=== PATIENT | male | born 1945 | race Caucasian/White ===

== ENCOUNTER 2022-08-25 18:23 | Inpatient (IN) | payer MEDICARE ==
[~2022-08-25 18:23] MED LIST: Iopamidol 370 76% 100 ML VIAL ONE
[2022-08-25] MEDS ORDERED: Albuterol Sulfate 2.5 mg/3 ml Neb ONE (18:43)
[2022-08-25] MEDS ORDERED: Ipratropium Bromide 2.5 ml Neb ONE (19:01)
[2022-08-25 19:52] LABS: Anion Gap 21 mmol/L (10-20); BUN (Urea Nitrogen) 17 mg/dL (8.4-25.7); Calc. Creatinine Clearance 0 mL/min (70-130); Carbon Dioxide 17 mmol/L (23-31); Chloride 104 mmol/L (98-107); Potassium 4.2 mmol/L (3.5-5.1); Sodium 138 mmol/L (136-145)
[2022-08-25 19:53] LABS: ALT (SGPT) Less than 6 U/L (8-55); AST (SGOT) 11 U/L (5-34); Albumin 3.9 g/dL (3.4-4.8); Alkaline Phosphatase 88 U/L (40-110); Bilirubin, Total 1.2 mg/dL (0.2-1.2); Calcium 9.2 mg/dL (7.8-10.44); Estimated GFR 49; Globulin 3.3 g/dL (2.4-3.5); Glucose 254 mg/dL (83-110); Protein, Total 7.2 g/dL (5.8-8.1)
[2022-08-25 20:07] LABS: Hemoglobin 13.6 g/dL (13.5-17.5); Mean Corpuscular HGB CONC 32.4 g/dL (32.0-36.0); Mean Corpuscular Hemoglobin 26.8 pg (27.0-33.0); Mean Corpuscular Volume 82.7 fl (81.2-95.1); Mean Platelet Volume 9.9 fl (7.4-10.4); Platelet Count 253 10x3/uL (150-450); RBC Distribution Width 14.1 % (11.5-14.5); Red Blood Cell (RBC) Count 5.08 10x6/uL (4.32-5.72); White Blood Cell (WBC) Count 7.9 10x3/uL (3.5-10.5)
[2022-08-25 20:08] LABS: MDiff Complete? YES
[2022-08-25 20:13] LABS: Band 24 % (5-11); Eosinophils 2 % (0-10); Lymphocytes 6 % (21-51); Monocytes 3 % (0-10); Neutrophil 65 % (42-75)
[2022-08-25 20:17] LABS: ALV-art Gradient 599.475 mmHg (0-20); Actual Bicarbonate (HCO3a) 17.3 mEq/L (22-28); Base Excess (BEa) -7.2 mEq/L (-2.0 to +3.0); CO2 Tension 32.5 mmHg (35.0-45.0); Carboxyhemoglobin (COHb) 0.2 gm% (0.0-3.0); Critical Notified By: CP.PH; Hemoglobin (Hb) 14.8 g/dL (14.0-18.0); O2 Tension (PaO2), arterial 72.9 mmHg (> 70.0); Potassium - ABG Lab 4.2 mmol/L (3.70-5.30); Puncture Site RRA; RapidComm Collect By CP.PH; pH, Arterial 7.35 (7.35-7.45)
[2022-08-25 20:20] LABS: Hypochromia SLIGHT = 6-15 cells (100X) (0-5/hpf); Microcytosis SLIGHT = 6-15 cells (100X) (0-5/hpf)
[2022-08-25] MEDS ORDERED: Dextrose 5% in Water 1,000 ML IV PRN (20:34)
[2022-08-25] MEDS ORDERED: Ondansetron PF 4 MG/2 ML Vial IVP PRN (20:34)
[2022-08-25] MEDS ORDERED: HumaLOG 300 UNITS/3 ML VIAL SC PRN (20:34)
[2022-08-25] MEDS ORDERED: Bisacodyl 5 MG TAB PO PRN (20:34)
[2022-08-25] MEDS ORDERED: Acetaminophen 325 MG TAB PO PRN (20:34)
[2022-08-25] MEDS ORDERED: Guaifenesin DM 100-10/5 ML UDCUP PO PRN (20:34)
[2022-08-25] MEDS ORDERED: Dextrose 50% Abboject 50 ML SYRINGE SLOW IVP PRN (20:34)
[2022-08-25] MEDS ORDERED: Morphine 2 MG/ML VIAL SLOW IVP PRN (20:44)
[2022-08-25] MEDS ORDERED: Enoxaparin Sodium 40 MG/0.4 ML SYRINGE SC SCH (21:00)
[2022-08-25] MEDS ORDERED: Cefepime 2 GM VIAL ONE (21:18)
[2022-08-25] MEDS: Cefepime 1 GM in Sodium Chloride 0.9% 100 ML IVPB SCH (22:00)
[2022-08-25 22:17] VITALS: BMI 29.7
[2022-08-25] MEDS ORDERED: Famotidine/PF 20 mg/2ml Vial SLOW IVP SCH (22:30)
[2022-08-25] MEDS: VANCOMYCIN 1.25 GM/250 ML BAG 1.25 GM in Premix Bag 1 BAG IVPB SCH (22:59)
[2022-08-25] MEDS: Lactated Ringer's 1,000 ML IV SCH (22:59)
[2022-08-25] MEDS: methylPREDNISolone Sod Succ 40 MG VIAL IVP SCH (23:00)
[2022-08-25 23:34] LABS: Lactic Acid 2.3 mmol/L (0.5-2.2)
[2022-08-26 00:35] LABS: Bilirubin Neg (Negative); Blood, Urine 10 (Negative); Clarity Clear (Clear); Glucose, Urine (Dipstick) Normal (Negative); Ketone, Urine Negative (Negative); Leukocyte Negative (Negative); Nitrite Negative (Negative); Protein, Urine (Dipstick) 100 mg/dl (Neg-Trace); Urobilinogen Normal mg/dL (Less than 2)
[2022-08-26 00:50] LABS: Bacteria/HPF None Seen HPF (None Seen); RBC/HPF 0-3 HPF (0-3); Squamous Epithelial None Seen HPF (0-3); WBC/HPF 0-3 HPF (0-3)
[2022-08-26] MEDS: methylPREDNISolone Sod Succ 40 MG VIAL IVP SCH ×4 (05:20→23:01)
[2022-08-26 05:49] LABS: ALT (SGPT) Less than 6 U/L (8-55); AST (SGOT) 8 U/L (5-34); Albumin 3.4 g/dL (3.4-4.8); Alkaline Phosphatase 57 U/L (40-110); Anion Gap 16 mmol/L (10-20); BUN (Urea Nitrogen) 22 mg/dL (8.4-25.7); Bilirubin, Total 0.9 mg/dL (0.2-1.2); Calc. Creatinine Clearance 57 mL/min (70-130); Calcium 9.2 mg/dL (7.8-10.44); Carbon Dioxide 18 mmol/L (23-31); Chloride 107 mmol/L (98-107); Estimated GFR 55; Globulin 3.3 g/dL (2.4-3.5); Glucose 195 mg/dL (83-110); Phosphorus 2.4 mg/dL (2.3-4.7); Protein, Total 6.7 g/dL (5.8-8.1); Sodium 137 mmol/L (136-145)
[2022-08-26 06:02] LABS: Hemoglobin 12.1 g/dL (13.5-17.5); Mean Corpuscular HGB CONC 32.4 g/dL (32.0-36.0); Mean Corpuscular Hemoglobin 26.5 pg (27.0-33.0); Mean Corpuscular Volume 81.8 fl (81.2-95.1); Mean Platelet Volume 9.6 fl (7.4-10.4); Platelet Count 171 10x3/uL (150-450); RBC Distribution Width 14.2 % (11.5-14.5); Red Blood Cell (RBC) Count 4.56 10x6/uL (4.32-5.72); White Blood Cell (WBC) Count 8.4 10x3/uL (3.5-10.5)
[2022-08-26 06:07] LABS: MDiff Complete? YES
[2022-08-26 06:58] LABS: Band 8 % (5-11); Lymphocytes 11 % (21-51); Monocytes 9 % (0-10); Neutrophil 71 % (42-75); Reactive Lymphocytes 1 % (0-10)
[2022-08-26 07:01] LABS: Anisocytosis SLIGHT = 6-15 cells (100X) (0-5/hpf); Microcytosis SLIGHT = 6-15 cells (100X) (0-5/hpf); Platelet Morphology Comment Appears Adequate
[2022-08-26] MEDS: Sertraline 25 MG TAB PO SCH (08:17)
[2022-08-26] MEDS: Cefepime 1 GM in Sodium Chloride 0.9% 100 ML IVPB SCH (08:17)
[2022-08-26] MEDS: Azithromycin 500 MG in Sodium Chloride 0.9% 250 ML 250 ML IVPB SCH (09:06)
[2022-08-26] MEDS ORDERED: Piperacillin/Tazobactam 3.375 GM in Sodium Chloride 0.9% 100 ML IVPB SCH (10:00)
[2022-08-26] MEDS: HumaLOG 300 UNITS/3 ML VIAL SC PRN ×2 (11:39→16:42)
[2022-08-26] MEDS: Lactated Ringer's 1,000 ML IV SCH (12:26)
[2022-08-26] MEDS: Piperacillin/Tazobactam 3.375 GM in Sodium Chloride 0.9% 100 ML IVPB SCH ×2 (13:41→21:00)
[2022-08-26 14:49] LABS: Legionella Urinary Ag Negative (Negative); Strep pneumo Urine Ag NEGATIVE (NEGATIVE)
[2022-08-26] MEDS: Carvedilol 12.5 MG TAB PO SCH (16:43)
[2022-08-26] MEDS: Enoxaparin Sodium 40 MG/0.4 ML SYRINGE SC SCH (20:29)
[2022-08-26] MEDS ORDERED: Famotidine/PF 20 mg/2ml Vial SLOW IVP SCH (21:00)
[2022-08-26] MEDS: hydrALAZINE 20 MG/ML VIAL SLOW IVP PRN (22:09)
[2022-08-26] MEDS: VANCOMYCIN 1.25 GM/250 ML BAG 1.25 GM in Premix Bag 1 BAG IVPB SCH (22:58)
[2022-08-27 03:47] LABS: Hemoglobin 10.7 g/dL (13.5-17.5); Mean Corpuscular HGB CONC 33.5 g/dL (32.0-36.0); Mean Corpuscular Hemoglobin 27.2 pg (27.0-33.0); Mean Platelet Volume 10.1 fl (7.4-10.4); Platelet Count 165 10x3/uL (150-450); Red Blood Cell (RBC) Count 3.94 10x6/uL (4.32-5.72); White Blood Cell (WBC) Count 6.4 10x3/uL (3.5-10.5)
[2022-08-27 03:48] LABS: MDiff Complete? YES
[2022-08-27 03:56] LABS: ALT (SGPT) Less than 6 U/L (8-55); AST (SGOT) 12 U/L (5-34); Albumin 3.2 g/dL (3.4-4.8); Alkaline Phosphatase 51 U/L (40-110); Anion Gap 15 mmol/L (10-20); BUN (Urea Nitrogen) 27 mg/dL (8.4-25.7); Bilirubin, Total 0.7 mg/dL (0.2-1.2); Calc. Creatinine Clearance 77 mL/min (70-130); Calcium 9.1 mg/dL (7.8-10.44); Carbon Dioxide 19 mmol/L (23-31); Chloride 110 mmol/L (98-107); Estimated GFR 79; Globulin 3.1 g/dL (2.4-3.5); Glucose 189 mg/dL (83-110); Potassium 3.7 mmol/L (3.5-5.1); Protein, Total 6.3 g/dL (5.8-8.1); Sodium 140 mmol/L (136-145)
[2022-08-27 04:44] LABS: Band 6 % (5-11); Lymphocytes 9 % (21-51); Monocytes 8 % (0-10); Neutrophil 77 % (42-75)
[2022-08-27 04:47] LABS: Microcytosis SLIGHT = 6-15 cells (100X) (0-5/hpf); Platelet Morphology Comment Appears Adequate
[2022-08-27] MEDS: methylPREDNISolone Sod Succ 40 MG VIAL IVP SCH ×3 (05:04→21:33)
[2022-08-27] MEDS: Piperacillin/Tazobactam 3.375 GM in Sodium Chloride 0.9% 100 ML IVPB SCH ×2 (05:04→13:11)
[2022-08-27] MEDS: Lactated Ringer's 1,000 ML IV SCH (05:05)
[2022-08-27] MEDS: Aspirin 325 mg Enteric Coated Tablet PO SCH (07:59)
[2022-08-27] MEDS: Carvedilol 12.5 MG TAB PO SCH ×2 (08:00→17:05)
[2022-08-27] MEDS: Sertraline 25 MG TAB PO SCH (08:00)
[2022-08-27] MEDS: HumaLOG 300 UNITS/3 ML VIAL SC PRN ×2 (08:26→17:53)
[2022-08-27] MEDS ORDERED: Famotidine/PF 20 mg/2ml Vial SLOW IVP SCH (09:00)
[2022-08-27] MEDS: Azithromycin 500 MG in Sodium Chloride 0.9% 250 ML 250 ML IVPB SCH (09:26)
[2022-08-27] MEDS: cefTRIAXone\\ROCEPHIN 2 GM in Sodium Chloride 0.9% 100 ML IVPB SCH (13:55)
[2022-08-27] MEDS: hydrALAZINE 20 MG/ML VIAL SLOW IVP PRN (19:44)
[2022-08-27] MEDS: Enoxaparin Sodium 40 MG/0.4 ML SYRINGE SC SCH (21:33)
[2022-08-28] MEDS: hydrALAZINE 20 MG/ML VIAL SLOW IVP PRN ×2 (01:32→06:07)
[2022-08-28 04:21] LABS: #Monocytes 0.2 10x3/uL (0.0-1.1); #Neutrophils 6.1 10x3/uL (1.5-8.4); %Basophils 0.1 % (0.0-2.0); %Lymphocytes 6.8 % (18.0-47.0); %Neutrophils 88.5 % (40.0-75.0); Hemoglobin 10.5 g/dL (13.5-17.5); Mean Corpuscular HGB CONC 33.1 g/dL (32.0-36.0); Mean Corpuscular Hemoglobin 26.6 pg (27.0-33.0); Mean Corpuscular Volume 80.5 fl (81.2-95.1); Mean Platelet Volume 10.1 fl (7.4-10.4); Platelet Count 196 10x3/uL (150-450); RBC Distribution Width 14.1 % (11.5-14.5); Red Blood Cell (RBC) Count 3.94 10x6/uL (4.32-5.72); White Blood Cell (WBC) Count 6.9 10x3/uL (3.5-10.5)
[2022-08-28 04:35] LABS: ALT (SGPT) 20 U/L (8-55); AST (SGOT) 23 U/L (5-34); Albumin 3.1 g/dL (3.4-4.8); Alkaline Phosphatase 58 U/L (40-110); Anion Gap 13 mmol/L (10-20); BUN (Urea Nitrogen) 31 mg/dL (8.4-25.7); Bilirubin, Total 0.4 mg/dL (0.2-1.2); Calc. Creatinine Clearance 82 mL/min (70-130); Calcium 8.8 mg/dL (7.8-10.44); Carbon Dioxide 23 mmol/L (23-31); Chloride 109 mmol/L (98-107); Estimated GFR 82; Glucose 230 mg/dL (83-110); Potassium 3.5 mmol/L (3.5-5.1); Protein, Total 6.1 g/dL (5.8-8.1); Sodium 141 mmol/L (136-145)
[2022-08-28] MEDS: methylPREDNISolone Sod Succ 40 MG VIAL IVP SCH ×2 (08:42→21:21)
[2022-08-28] MEDS: Sertraline 25 MG TAB PO SCH (08:42)
[2022-08-28] MEDS: Aspirin 325 mg Enteric Coated Tablet PO SCH (08:43)
[2022-08-28] MEDS: HumaLOG 300 UNITS/3 ML VIAL SC PRN ×2 (08:47→16:40)
[2022-08-28] MEDS: Azithromycin 500 MG in Sodium Chloride 0.9% 250 ML 250 ML IVPB SCH (09:08)
[2022-08-28] MEDS: Carvedilol 12.5 MG TAB PO SCH ×2 (10:01→16:37)
[2022-08-28] MEDS: cefTRIAXone\\ROCEPHIN 2 GM in Sodium Chloride 0.9% 100 ML IVPB SCH (13:02)
[2022-08-28] MEDS: hydrALAZINE 25 MG TAB PO SCH ×2 (16:32→21:21)
[2022-08-28] MEDS ORDERED: Carvedilol 3.125 MG TAB PO SCH (17:00)
[2022-08-28] MEDS: NIFEdipine XL 60 MG TAB PO SCH (21:20)
[2022-08-28] MEDS: Enoxaparin Sodium 40 MG/0.4 ML SYRINGE SC SCH (21:20)
[2022-08-29] MEDS: hydrALAZINE 20 MG/ML VIAL SLOW IVP PRN ×2 (00:12→04:31)
[2022-08-29 04:29] LABS: #Monocytes 0.2 10x3/uL (0.0-1.1); %Basophils 0.2 % (0.0-2.0); %Lymphocytes 5.2 % (18.0-47.0); %Monocytes 2.6 % (0.0-10.0); %Neutrophils 90.2 % (40.0-75.0); Mean Corpuscular HGB CONC 32.9 g/dL (32.0-36.0); Mean Corpuscular Hemoglobin 26.4 pg (27.0-33.0); Mean Corpuscular Volume 80.1 fl (81.2-95.1); Mean Platelet Volume 10.1 fl (7.4-10.4); Platelet Count 209 10x3/uL (150-450); RBC Distribution Width 14.2 % (11.5-14.5); Red Blood Cell (RBC) Count 4.17 10x6/uL (4.32-5.72); White Blood Cell (WBC) Count 8.9 10x3/uL (3.5-10.5)
[2022-08-29 04:34] LABS: ALT (SGPT) 29 U/L (8-55); AST (SGOT) 20 U/L (5-34); Albumin 3.1 g/dL (3.4-4.8); Alkaline Phosphatase 60 U/L (40-110); Anion Gap 12 mmol/L (10-20); BUN (Urea Nitrogen) 33 mg/dL (8.4-25.7); Bilirubin, Total 0.4 mg/dL (0.2-1.2); Calc. Creatinine Clearance 86 mL/min (70-130); Calcium 8.7 mg/dL (7.8-10.44); Carbon Dioxide 23 mmol/L (23-31); Chloride 107 mmol/L (98-107); Estimated GFR 83; Glucose 247 mg/dL (83-110); Potassium 3.5 mmol/L (3.5-5.1); Protein, Total 6.1 g/dL (5.8-8.1); Sodium 138 mmol/L (136-145)
[2022-08-29] MEDS: HumaLOG 300 UNITS/3 ML VIAL SC PRN ×2 (06:33→17:20)
[2022-08-29] MEDS: Aspirin 325 mg Enteric Coated Tablet PO SCH (08:59)
[2022-08-29] MEDS: Sertraline 25 MG TAB PO SCH (08:59)
[2022-08-29] MEDS: Azithromycin 500 MG in Sodium Chloride 0.9% 250 ML 250 ML IVPB SCH (08:59)
[2022-08-29] MEDS: hydrALAZINE 25 MG TAB PO SCH ×3 (08:59→21:32)
[2022-08-29] MEDS: methylPREDNISolone Sod Succ 40 MG VIAL IVP SCH ×2 (08:59→21:42)
[2022-08-29] MEDS: Gabapentin 100 MG CAP PO SCH ×2 (09:00→21:31)
[2022-08-29] MEDS: Carvedilol 12.5 MG TAB PO SCH ×2 (09:33→16:30)
[2022-08-29] MEDS: NIFEdipine XL 60 MG TAB PO SCH ×2 (09:34→21:41)
[2022-08-29] MEDS: cefTRIAXone\\ROCEPHIN 2 GM in Sodium Chloride 0.9% 100 ML IVPB SCH (12:31)
[2022-08-29] MEDS: Atorvastatin Calcium 10 MG TAB PO SCH (21:31)
[2022-08-29] MEDS: Enoxaparin Sodium 40 MG/0.4 ML SYRINGE SC SCH (21:34)
[2022-08-30 05:03] LABS: #Monocytes 0.3 10x3/uL (0.0-1.1); %Basophils 0.3 % (0.0-2.0); %Lymphocytes 6.4 % (18.0-47.0); %Monocytes 3.6 % (0.0-10.0); %Neutrophils 87.4 % (40.0-75.0); Hemoglobin 11.7 g/dL (13.5-17.5); Mean Corpuscular HGB CONC 33.3 g/dL (32.0-36.0); Mean Corpuscular Hemoglobin 26.7 pg (27.0-33.0); Mean Corpuscular Volume 80.1 fl (81.2-95.1); Mean Platelet Volume 10.2 fl (7.4-10.4); Platelet Count 220 10x3/uL (150-450); RBC Distribution Width 14.1 % (11.5-14.5); Red Blood Cell (RBC) Count 4.38 10x6/uL (4.32-5.72)
[2022-08-30 05:36] LABS: ALT (SGPT) 34 U/L (8-55); AST (SGOT) 19 U/L (5-34); Albumin 3.1 g/dL (3.4-4.8); Alkaline Phosphatase 58 U/L (40-110); Anion Gap 13 mmol/L (10-20); BUN (Urea Nitrogen) 32 mg/dL (8.4-25.7); Bilirubin, Total 0.4 mg/dL (0.2-1.2); Calc. Creatinine Clearance 77 mL/min (70-130); Calcium 8.5 mg/dL (7.8-10.44); Carbon Dioxide 22 mmol/L (23-31); Chloride 107 mmol/L (98-107); Estimated GFR 77; Globulin 2.9 g/dL (2.4-3.5); Glucose 249 mg/dL (83-110); Potassium 3.8 mmol/L (3.5-5.1); Sodium 138 mmol/L (136-145)
[2022-08-30] MEDS: HumaLOG 300 UNITS/3 ML VIAL SC PRN ×2 (07:24→17:40)
[2022-08-30] MEDS: hydrALAZINE 25 MG TAB PO SCH ×3 (09:19→21:21)
[2022-08-30] MEDS: Azithromycin 500 MG in Sodium Chloride 0.9% 250 ML 250 ML IVPB SCH (09:19)
[2022-08-30] MEDS: Aspirin 325 mg Enteric Coated Tablet PO SCH (09:19)
[2022-08-30] MEDS: Carvedilol 12.5 MG TAB PO SCH ×2 (09:19→17:40)
[2022-08-30] MEDS: Gabapentin 100 MG CAP PO SCH ×2 (09:19→21:21)
[2022-08-30] MEDS: methylPREDNISolone Sod Succ 40 MG VIAL IVP SCH (09:19)
[2022-08-30] MEDS: Sertraline 25 MG TAB PO SCH (09:19)
[2022-08-30] MEDS: NIFEdipine XL 60 MG TAB PO SCH ×2 (09:19→21:22)
[2022-08-30] MEDS: cefTRIAXone\\ROCEPHIN 2 GM in Sodium Chloride 0.9% 100 ML IVPB SCH (14:18)
[2022-08-30] MEDS: Atorvastatin Calcium 10 MG TAB PO SCH (21:21)
[2022-08-30] MEDS: Enoxaparin Sodium 40 MG/0.4 ML SYRINGE SC SCH (21:23)
[2022-08-30 23:08] LABS: Mycoplasma pneumoniae IgG AB 197 U/mL (0-99); Mycoplasma pneumoniae IgM AB Less than 770 U/mL (0-769)
[2022-08-31 07:01] LABS: #Basophils 0.1 10x3/uL (0.0-0.2); #Monocytes 0.7 10x3/uL (0.0-1.1); #Neutrophils 6.3 10x3/uL (1.5-8.4); %Basophils 0.6 % (0.0-2.0); %Eosinophils 0.3 % (0.0-6.0); %Lymphocytes 14.7 % (18.0-47.0); %Neutrophils 71.8 % (40.0-75.0); Hemoglobin 11.2 g/dL (13.5-17.5); Mean Corpuscular Hemoglobin 26.6 pg (27.0-33.0); Mean Corpuscular Volume 80.5 fl (81.2-95.1); Mean Platelet Volume 9.9 fl (7.4-10.4); Platelet Count 213 10x3/uL (150-450); RBC Distribution Width 13.7 % (11.5-14.5); Red Blood Cell (RBC) Count 4.21 10x6/uL (4.32-5.72); White Blood Cell (WBC) Count 8.8 10x3/uL (3.5-10.5)
[2022-08-31 07:09] LABS: ALT (SGPT) 76 U/L (8-55); AST (SGOT) 50 U/L (5-34); Albumin 2.9 g/dL (3.4-4.8); Alkaline Phosphatase 60 U/L (40-110); Anion Gap 13 mmol/L (10-20); BUN (Urea Nitrogen) 26 mg/dL (8.4-25.7); Bilirubin, Total 0.4 mg/dL (0.2-1.2); Calc. Creatinine Clearance 100 mL/min (70-130); Carbon Dioxide 21 mmol/L (23-31); Chloride 107 mmol/L (98-107); Estimated GFR 92; Globulin 2.6 g/dL (2.4-3.5); Glucose 145 mg/dL (83-110); Potassium 3.6 mmol/L (3.5-5.1); Protein, Total 5.5 g/dL (5.8-8.1); Sodium 137 mmol/L (136-145)
[2022-08-31] MEDS ORDERED: predniSONE 20 MG TAB PO SCH (08:00)
[2022-08-31] MEDS: Azithromycin 500 MG in Sodium Chloride 0.9% 250 ML 250 ML IVPB SCH (08:54)
[2022-08-31] MEDS: hydrALAZINE 25 MG TAB PO SCH (08:55)
[2022-08-31] MEDS: Aspirin 325 mg Enteric Coated Tablet PO SCH (08:55)
[2022-08-31] MEDS: Gabapentin 100 MG CAP PO SCH (08:55)
[2022-08-31] MEDS: Sertraline 25 MG TAB PO SCH (08:56)
[2022-08-31] MEDS: Carvedilol 12.5 MG TAB PO SCH (08:56)
[2022-08-31] MEDS: NIFEdipine XL 60 MG TAB PO SCH (08:56)
[2022-08-31 10:47] VITALS: BP 141/65; TEMP 98.3
== END 2022-08-31 11:55 | disposition home or self-care (01) | DRG 871 ==
LOC: CSHERS 18:23 → CSHICU 22:07 → CSHTELE 08-28 10:22
PROVIDERS: ADMIT Emergency Medicine; ATTEND Hospitalist
PROC: 5A09457 Assistance with Respiratory Ventilation, 24-96 Consecutive Hours, Continuous Positive Airway Pressure (ICD-10-PCS; principal; 2022-08-25)
PROC: 3E03329 Introduction of Other Anti-infective into Peripheral Vein, Percutaneous Approach (ICD-10-PCS; 2022-08-25)
DX: A41.9 Sepsis, unspecified organism (principal); J18.9 Pneumonia, unspecified organism; J96.01 Acute respiratory failure with hypoxia; E87.20 Acidosis, unspecified; I10 Essential (primary) hypertension; I25.10 Atherosclerotic heart disease of native coronary artery without angina pectoris; E11.9 Type 2 diabetes mellitus without complications; E11.65 Type 2 diabetes mellitus with hyperglycemia; K21.9 Gastro-esophageal reflux disease without esophagitis; F39 Unspecified mood [affective] disorder; J43.9 Emphysema, unspecified; Z88.2 Allergy status to sulfonamides; Z79.82 Long term (current) use of aspirin; Z79.51 Long term (current) use of inhaled steroids; Z79.899 Other long term (current) drug therapy; Z95.1 Presence of aortocoronary bypass graft; Z86.73 Personal history of transient ischemic attack (TIA), and cerebral infarction without residual deficits; Z98.890 Other specified postprocedural states; Z87.891 Personal history of nicotine dependence
CPT/HCPCS: 36415; 36416; 36600; 71045; 71275; 80053; 81001; 82805; 83605; 83880; 84100; 84145; 85025; 86140; 87070; 87205; 87449; 87899; 93005; 94640; 94644; 94660; 94760; J0360; J0456; J0692; J0696; J1650; J1815; J2543; J2920; J3370; J3490; J7050; J7120; J7512; J7611; J7620; Q9967; S0028